=== PATIENT | male | born 1985 | race African-American/Black ===

== ENCOUNTER 2021-01-09 06:43 | Outpatient (CLI) | payer MEDICAID, SELFPAY ==
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
== END 2021-01-09 06:44 | disposition home or self-care (01) ==
LOC: ANHIMG 06:50
PROVIDERS: PCP Nurse Practitioner Family; Visit Provider Nurse Practitioner Family
DX: M25.462 Effusion, left knee (principal); M71.22 Synovial cyst of popliteal space [Baker], left knee; M22.42 Chondromalacia patellae, left knee; S83.282A Other tear of lateral meniscus, current injury, left knee, initial encounter
CPT/HCPCS: 73721

== ENCOUNTER 2021-03-04 04:02 | Emergency (ER) | payer OTHER, SELFPAY ==
--- NOTE | ~2021-03-04 | XR_ITS ---
EXAMINATION: XR ankle RT min 3V INDICATION: Right ankle pain TECHNIQUE: Four views of the right ankle are obtained. COMPARISON: None available FINDINGS: There is no fracture, dislocation, or subluxation. There is mild osteoarthritis of the ankl e. The soft tissues are normal. Posterior and plantar calcaneal enthesophytes are noted. IMPRESSION: 1. No acute osseous abnormality. Reviewed, dictated and finalized at location A.
--- NOTE | ~2021-03-04 | CT_ITS ---
EXAMINATION: CT cervical spine wo con DATE: 03/04/2021 05:25 INDICATION: Neck pain TECHNIQUE: Computed tomography (CT) of the cervical spine was performed without intravenous contrast. The dose-length product (DLP) was 415.46 mGy-cm. Automated exposure control and iterative reconstruc tion technique were employed. COMPARISON: None FINDINGS: There is no fracture, dislocation, or subluxation. The vertebral body heights, alignment, a nd intervertebral disc spaces are normal. The paravertebral soft tissues are unremarkable. The odonto id is intact. IMPRESSION: 1. No acute osseous abnormality. Reviewed, dictated and finalized at location A.
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
[2021-03-04 04:05] VITALS: BP 115/74; PULSE 100; RESP 20; TEMP 36.4; O2SAT 95
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
[2021-03-04 06:24] VITALS: BP 108/64; PULSE 86; RESP 18; O2SAT 96
[2021-03-04 08:35] VITALS: BP 110/80; PULSE 80; RESP 20; O2SAT 100
== END 2021-03-04 08:35 | disposition home or self-care (01) ==
PROVIDERS: Emergency Provider Family Medicine; PCP Nurse Practitioner Family
DX: S09.90XA Unspecified injury of head, initial encounter (principal); M54.2 Cervicalgia; S93.401A Sprain of unspecified ligament of right ankle, initial encounter; F41.9 Anxiety disorder, unspecified; I10 Essential (primary) hypertension; F17.210 Nicotine dependence, cigarettes, uncomplicated; Y04.2XXA Assault by strike against or bumped into by another person, initial encounter
CPT/HCPCS: 70450; 71250; 72125; 73610; 74176; 99284

== ENCOUNTER 2022-04-19 09:27 | Emergency (ER) | payer OTHER, SELFPAY ==
[2022-04-19 09:35] VITALS: BP 145/119; PULSE 144; RESP 19; TEMP 36.7; O2SAT 100
--- NOTE | 2022-04-19 10:40 | ED.GENADULT ---
HPI - General Adult General Chief complaint: Dental/Oral Stated complaint: abscess Time Seen by Provider: 04/19/22 09:32 History of Present Illness HPI narrative: This is a 37-year-old male presenting ED with a dental abscess. Patient says he has had increased pain swelling over the upper right incisor. he has had some swelling of his face. Denies fever chills nausea vomiting or diarrhea. He denies any difficulty swallowing his own secretions, or difficulty breathing. While patient was waiting to be interviewed he said the abscess ruptured and drained. He can no longer feel the abscess. Related Data Allergies Allergy/AdvReac Type Severity Reaction Status Date / Time amoxicillin AdvReac Diarrhea Verified 04/19/22 09:38 Review of Systems Review of Systems: CONSTITUTIONAL: Denies night sweats. EYES: No eye pain ENT: Denies rhinorrhea CARDIOVASCULAR: Denies palpitations RESPIRATORY: Denies hemoptysis GASTROINTESTINAL: Denies hematemesis GENITOURINARY: Denies hematuria. SKIN: Denies rash MUSCULOSKELETAL: Denies myalgia. NEUROLOGIC: Denies weakness. PSYCHIATRIC: Denies delusions PMF Past Medical History Medical History Anxiety Essential (primary) hypertension Generalized headaches Family History Family History Mother Hypertension Father Hypertension Heart disease Diabetes mellitus Gout Grandparent Diabetes mellitus Breast cancer Other Diabetes mellitus Social History Social History Smoking packs per day: 1 Smoking cigarettes per day: 20.0 Years smoked: 16 Smoking pack-years: 16.00 Smoking status: Current every day smoker Tobacco type: cigarettes Second hand tobacco smoke exposure: Yes Alcohol intake: current Alcohol use details: beer Substance use: current Substance use type: marijuana Exam Narrative: APPEARANCE: No apparent distress. Head patient has poor dentition. There is no area of fluctuance over his upper gums. There is some swelling of the face on the right side. EYES: PERRLA/EOMI, NOSE: Normal no drainage NECK: Supple, Trachea midline RESPIRATORY: CTAB, No increased work of breathing. CARDIOVASCULAR: S1S2 appreciated ABDOMINAL: Soft, nontender, nondistended, MUSCULOSKELETAl: No obvious deformities NEURO: Alert. Moving 4/4 extremities SKIN:: Warm, dry. Normal color PSYCHIATRIC: Normal affect Course Vital Signs Vital signs: Vital Signs Temperature 98.0 F 04/19/22 09:35 Pulse Rate 144 H 04/19/22 09:35 Respiratory Rate 19 04/19/22 09:35 Blood Pressure 145/119 H 04/19/22 09:35 Pulse Oximetry 100 04/19/22 09:35 Oxygen Delivery Room Air 04/19/22 09:35 Temperature 98.0 F 04/19/22 09:35 Pulse Rate 144 H 04/19/22 09:35 Respiratory Rate 19 04/19/22 09:35 Blood Pressure 145/119 H 04/19/22 09:35 Pulse Oximetry 100 04/19/22 09:35 Oxygen Delivery Room Air 04/19/22 09:35 Medical Decision Making MDM Narrative Medical decision making narrative: This is a 37-year-old male who presented with an abscess that ruptured while he was in the ED. was no area of fluctuance or anything to be drained at this time. He will be started on clindamycin instructed follow-up with a dentist. Vital Signs Vital Signs: Vital Signs Temperature 98.0 F 04/19/22 09:35 Pulse Rate 144 H 04/19/22 09:35 Respiratory Rate 19 04/19/22 09:35 Blood Pressure 145/119 H 04/19/22 09:35 Pulse Oximetry 100 04/19/22 09:35 Oxygen Delivery Room Air 04/19/22 09:35 Temperature 98.0 F 04/19/22 09:35 Pulse Rate 144 H 04/19/22 09:35 Respiratory Rate 19 04/19/22 09:35 Blood Pressure 145/119 H 04/19/22 09:35 Pulse Oximetry 100 04/19/22 09:35 Oxygen Delivery Room Air 04/19/22 09:35 Discharge Plan Discharge Clinical Impression: Dental caries, De
[2022-04-19 11:06] VITALS: BP 157/101; PULSE 110; RESP 16; O2SAT 100
== END 2022-04-19 11:07 | disposition home or self-care (01) ==
PROVIDERS: Emergency Provider Emergency Medicine; PCP Family Medicine
DX: K04.7 Periapical abscess without sinus (principal); K02.9 Dental caries, unspecified; I10 Essential (primary) hypertension; F17.210 Nicotine dependence, cigarettes, uncomplicated
CPT/HCPCS: 99283